=== PATIENT | female | born 1985 | race Asian ===

== ENCOUNTER 2020-01-31 21:48 | Emergency (ER) | payer OTHER, SELFPAY ==
[2020-01-31 21:52] VITALS: BP 117/80; PULSE 102; RESP 20; TEMP 36.1; O2SAT 100
--- NOTE | 2020-01-31 23:19 | ED.EAR ---
HPI - Ear Problem General Chief complaint: Ear Stated complaint: ear pain Time Seen by Provider: 01/31/20 22:38 Source: patient and RN notes reviewed Mode of arrival: ambulatory Limitations: no limitations History of Present Illness HPI Narrative: Pt is a 34 y/o female presenting to the ED c/o otalgia. Pt reports she started experiencing lt otalgia a week ago, but notes she developed rt otaliga earlier today. Pt reports her bilateral ears are pruritic as well, but denies fever. Pt notes she has been applying Benadryl cream to her ears. Pt denies a Hx of DM. Location: bilateral Associated symptoms ear: other (Bilateral ear pruritus) Treatment prior to arrival: other (Benadryl cream) Related Data Home Medications Medication Instructions Recorded Confirmed 11/18/19 Allergies Allergy/AdvReac Type Severity Reaction Status Date / Time No Known Allergies Allergy Unverified 11/18/19 23:42 Review of Systems Review of Systems: Narrative: All systems reviewed & are unremarkable except as noted in HPI and below Constitutional: Constitutional: Denies fever(s) ENT: Reports otalgia (Bilateral) Integumentary/Breasts: Skin/Breast: Reports pruritus (Bilateral ears) PMFSH Past Medical History Medical History Healthy adult Surgical History Surgical History No pertinent past surgical history Social History Social History Smoking status: Never smoker Gender identity (if verbalized by the patient): Female Exam Narrative: Exam Narrative: GENERAL: Well-appearing, well-nourished, and in no acute distress. HEAD: Normocephalic, atraumatic. EYES: PERRLA and EOMI. ENT: Nares clear, Mucous membranes moist. both external ear are erythematous and crusty NECK: Supple. CHEST: Clear to auscultation. No respiratory distress. HEART: Regular rate and rhythm. No murmur heard. Normal peripheral pulses.. EXTREMITIES: Normal range of motion. No edema. SKIN: Warm, dry, no rash. NEURO: No focal deficits. Alert and oriented x3. PSYCH: Normal mood and affect. Course Vital Signs Vital signs: Vital Signs Temperature 36.1 C L 01/31/20 21:52 Pulse Rate 102 H 03/06/20 21:52 Respiratory Rate 01/31/20 21:52 Blood Pressure 117/80 01/31/20 21:52 Pulse Oximetry 100 01/31/20 21:52 Temperature 36.1 C L 01/31/20 21:52 Pulse Rate 102 H 01/31/20 21:52 Respiratory Rate 01/31/20 21:52 Blood Pressure 117/80 01/31/20 21:52 Pulse Oximetry 100 01/31/20 21:52 Medical Decision Making Vital Signs Vital Signs: Vital Signs Temperature 36.1 C L 01/31/20 21:52 Pulse Rate 102 H 01/31/20 21:52 Respiratory Rate 01/31/20 21:52 Blood Pressure 117/80 01/31/20 21:52 Pulse Oximetry 100 01/31/20 21:52 Temperature 36.1 C L 01/31/20 21:52 Pulse Rate 102 H 01/31/20 21:52 Respiratory Rate 01/31/20 21:52 Blood Pressure 117/80 01/31/20 21:52 Pulse Oximetry 100 01/31/20 21:52 Discharge Plan Discharge Clinical Impression: Otitis externa Patient Disposition: Home, Self-Care Condition: Stable Instructions: Antibiotic Form Prescriptions: New prednisone 20 mg tablet 20 mg PO BID Qty: 14 RF: 0 amoxicillin-pot clavulanate [Augmentin] 875-125 mg tablet 1 tablet PO Q12H Qty: 14 RF: 0 No Action RF: 0 acetaminophen 500 mg tablet 1,000 mg PO .Q8 PRN (Reason: pain) Qty: 30 RF: 0 Follow-up/Referrals: UNKNOWN,DOCTOR [Primary Care Provider] - Adrián Goncalves MD [Physician] - Time of Disposition: 23:33
[2020-01-31] MEDS: predniSONE 20 MG TABLET 60 MG PO (23:46)
[2020-01-31 23:47] VITALS: BP 116/81; PULSE 88; RESP 16; O2SAT 100
== END 2020-01-31 23:48 | disposition home or self-care (01) ==
PROVIDERS: Emergency Provider Family Medicine
DX: H60.93 Unspecified otitis externa, bilateral (principal)
CPT/HCPCS: 99283; J7512

== ENCOUNTER 2025-03-06 09:52 | Outpatient (CLI) | payer OTHER, SELFPAY ==
--- NOTE | ~2025-03-06 | MM_ITS ---
EXAMINATION: MM scrn carmine implant BI w abeba HISTORY: Screening mammogram TECHNIQUE: Craniocaudal and mediolateral oblique 3-D tomosynthesis images with implant displacement a nd synthetic 2-D images were generated. Craniocaudal and mediolateral oblique views of the breasts wi thout implant displacement were obtained using full field digital mammography. CAD analysis was submi tted and interpreted. COMPARISON: No prior mammogram is available for comparison at this institution. BREAST PARENCHYMAL COMPOSITION: Dense: The breasts are heterogeneously dense, which may obscure small masses FINDINGS: There is no evidence of suspicious mass, calcification, or architectural distortion to sugg est malignancy in either breast. There has been no suspicious interval change. IMPRESSION: 1. No mammographic evidence of malignancy. 2. Recommend routine screening mammography in one year. BI-RADS Category 1: Negative Reviewed, dictated and finalized at location A.
--- OUTSIDE RECORDS SUMMARY | 2025-03-06 10:33 | XMS_ITS | Referral Summary ---
Author Organization [address] [address] Care Team Providers Care Hull Molder Name Role Phone Moris Hood MD Primary Care Provider Encounters Date Type Department Care Team Description 12/12/2024 Telephone [facility] Medical [facility] Primary Care at [address] [address] Moris Hood MD Test Results (Pap) 12/09/2024 1:31 PM GUIDE ESCORT - 12/09/2024 11:59 PM GUIDE ESC[place] [address] Cervical cancer screening Discharge Disposition: Discharge to home or self care 12/09/2024 1:00 PM GUIDE ESCORT Office Visit [facility] Medical [facility] Primary Care at [address] [address] Sepideh Figueroa NP Cervical cancer screening (Primary Dx) from Last 3 Months Allergies No known active allergies Medications gz-kj-vvxn-FA-Ca carb-vit K 18 mg iron-400 mcg-500 mg tablet Take by mouth Active Active Problems Problem Noted Date Diagnosed Date Encounter for medical examination to establish c are 08/14/2024 Assessment & Plan (08/14/2024 12:29 PM CDT): A(n) initial well visit to establish care has been performed today. Dustin Gabriel is not up to date on screening tests. She is in need of hep B and C and Cholesterol screening. She is not up to date on needed preventative vaccinations; She is in need of Influenza. She declines vaccinations at this time. We discussed healthy lifestyle habits, educational material has been given. Medications reviewed, changes documented as per the medical record and discussed with patient along with risks vs benefits. Specific topics reviewed: drugs, ETOH, and tobacco, importance of regular dental care, importance of regular exercise, importance of varied diet, limit TV, media violence, minimize junk food, and seat belts. Return in 1 year Immunizations Immunization Administration Dates Next Due DTaP 08/06/2016 Social History Tobacco Use Types Packs/Day Years Used Date Smoking Tobacco: Never Smokeless Tobacco: Never Tobacco Cessation:Counseling Given: Not Answered AUDIT-C Answer Date Recorded Q1: How often do you have a drink containing alc ohol? Monthly or less 08/14/2024 Q2: How many drinks containi ng alcohol do you have on a typical day when you are drinking? 1 or 2 08/14/2024 Q3: How often do you have si x or more drinks on one occasion? 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 Not on file Not on file Last Filed Vital Signs Vital Sign Reading Time Taken Comments Blood Pressure 98/64 12/09/2024 12:58 PM GUIDE ESCORT Pulse 64 12/09/2024 12:58 PM GUIDE ESCORT Temperature 36.8 C (98.2 F) 12/09/2024 12:58 PM GUIDE ESCORT Respiratory Rate 14 08/14/2024 12:07 PM CDT Oxygen Saturation 99% 12/09/2024 12:58 PM GUIDE ESCORT Inhaled Oxygen Concentration - - Weight 42.6 kg (94 lb) 12/09/2024 12:58 PM GUIDE ESCORT Height 154.9 cm (5' 1 ) 12/09/2024 12:58 PM GUIDE ESCORT Body Mass Index 17.76 12/09/2024 12:58 PM GUIDE ESCORT Plan of Treatment Not on file Procedures Procedure Name Priority Date/Time Associated Diagnosis Comments PAP WITH REFLEX TO HIGH RISK HPV Routine 12/09/2024 1:17 PM GUIDE ESCORT Cervical cancer screening THINPREP PROCESSING (MOLECULAR COMPONENT) Routine 12/09/2024 9:00 AM GUIDE ESCORT Cervical cancer screening HEPATITIS C ANTIBODY Routine 08/14/2024 4:00 PM CDT Need for hepatitis C screening test from Last 3 Months or Most Recently Relevant to Health Maintenance Results * Pap with reflex to High Risk HPV and Genotyping (Cytology Component) (12/09/2024 1:17 PM GUIDE ESCORT) Endocervical (Pap test) 12/09/2024 1:17 PM GUIDE ESCORT 12/09/2024 1:17 PM GUIDE ESCORT Narrative PATHOLOGY CH - 12/11/2024 4:02 PM GUIDE ESCORT [facility] Department of Pathology [address] [place] [address] Final Report Note to Patients: This report may contain a detailed description of human tissue sent by a health care provider to the laboratory for pathologic evaluation. The content of this report is essential for diagnosis and may provide important critical findings. This information may be unfamiliar to patients to review without a medical professional present. It is advised that the patient review this report in the presence of a health care provider who can answer questions and explain the details. Patient Name: DUSTIN GABRIEL Address: [address] [place] [address] Gender: F : 1985 (Age: 39) Service: Location: [facility] : [id number] [facility] #: [id number] Patient Type: SPECIMEN Taken: 12/09/2024 Received: 12/09/2024 Accessioned:: 12/10/2024 Reported: 12/11/2024 Physician(s): Sepideh Figueroa, F.N.P. Sepideh Figueroa, F.N.P. Diagnosis: SOURCE OF SPECIMEN Imaged Thinprep Pap Test w/ Reflex HPV - Smoke Jumper Cytologic Material: STATEMENT OF ADEQUACY - Specimen satisfactory for interpretation; endocervical/transformation zone component absent or insufficient GENERAL CATEGORIZATION: - Negative for intraepithelial lesion or malignancy EDWIN Oliver(ASCP) Report Electronically Reviewed and Signed Out By EDWIN Oliver(ASCP) 12/11/2024 16:02:38Specimen(s) Received: A: Imaged Thinprep Pap Test w/ Reflex HPV - Smoke Jumper Cytologic Material Clinical History: The Pap test is a screening test used to aid in the detection of cervical cancer and its precursors. It should not be the sole means by which malignant and premalignant lesions are diagnosed. Both false negative and false positive results may occur. It also has poor sensitivity for the detection of endometrial lesions and should not be used to evaluate suspected endometrial abnormalities. For these reasons it is most important to obtain Pap tests at regular intervals. The performance characteristics of some immunohistochemical stains, fluorescence in-situ hybridization tests and immunophenotyping by flow cytometry cited in this report (if any) were determined by the Surgical Pathology Department at [facility] as part of an ongoing quality control engineering technician program and in compliance with federally mandated regulations drawn from the Clinical Laboratory Improvement Act of 1988 (CLIA '88). Some of these tests rely on the use of analyte specific reagents and are subject to specific labeling requirements by the US Food and Drug Administration. Such diagnostic tests may only be performed in a facility that is certified by the Department of Health and Human Services as a high complexity laboratory under CLIA '88. The FDA has determined that such clearance or approval is not necessary. This test is used for clinical purposes. It should not be regarded as investigational or for research. Nevertheless, federal rules concerning the medical use of analyte specific reagents require that the following disclaimer be attached to the report: This test was developed and its performance characteristics determined by the Surgical Pathology Department [facility]. It has not been cleared or approved by the U. S. Food and Drug Administration. Sepideh Figueroa NP LAB CYTOLOGY ORDERABLES Final Re sult PATHOLOGY [address] [place] [address] * ThinPrep processing (Molecular component) (12/09/2024 9:00 AM GUIDE ESCORT) ThinPrep processing (Molecular component) Specimen received for processing. [facility] Comment:Testing performed by : [facility], [address] [facility], [place]., [address] Endocervical 12/09/2024 9:00 AM GUIDE ESCORT 12/10/2024 4:42 PM GUIDE ESCORT Sepideh Figueroa NP LAB BODY FLUIDS AND STOOLS ORDER CLAIR Final Result Performing Organization Address [facility] Phone Number [address]ACH K[address]EN [phone] [address] Department [place] [address] BJ * Hepatitis C antibody Blood (08/14/2024 4:00 PM CDT) Hep C Ab Nonreactive Nonreactive Comment: Interpretive Data Nonreactive: Antibodies to HCV not detected. Does NOT exclude the possibility of recent exposure to HCV. Equivocal: Equivocal for HCV antibodies. Supplemental molecular testing will be automatically performed to determine infection status in accordance with current CDC screening recommendations. Reactive: Positive for HCV antibodies. This may represent current or past HCV infection. Supplemental molecular testing will be automatically performed to determine current infection status in accordance with current CDC screening recommendations. Interpretive data was last revised on 2020. Blood 08/14/2024 4:00 PM CDT 08/14/2024 8:14 PM CDT Moris Hood MD LAB MICROBIOLOGY - GENERAL ORDERABLES Final Result Performing Organization Address [facility] de Phone Number ZACH [address]EN [phone] Department [place] [address] from Last 3 Months or Most Recently Relevant to Health Maintenance Insurance [facility] Care Teams Hull Molder Relationship Specialty Start Date End Date Moris Hood MD [facility] [address] [address] PCP - General Family Medicine 08/14/24
--- OUTSIDE RECORDS SUMMARY | 2025-03-06 10:33 | XMS_ITS | Clinical Summary ---
Author Organization [facility] [address] Address [address] [place] [address] Care Team Providers Care Veneer Sorter Name Role Phone Moris Hood MD Primary Care Provider [phone] Allergies No known active allergies Medications ik-tf-zlpt-FA-Ca carb-vit K 18 mg iron-400 mcg-500 mg [...] and seat belts. Return in 1 year Encounters Date Type Department Care Team Description 12/12/2024 Telephone [facility] Primary Care at [address] [address] Moris Hood MD Test Results (Pap) 12/09/2024 1:31 PM VICE INVESTIGATOR - 12/09/2024 11:59 PM VICE INVESTIGATOR Hospital Encounter [address] [address] Cervical cancer screening Discharge Disposition: Discharge to home or self care 12/09/2024 1:00 PM VICE INVESTIGATOR Office Visit [facility] Primary Care at [address] [address] Sepideh Fiugeroa NP Cervical cancer screening (Primary Dx) from Last 3 Months Immunizations Immunization Administration Dates Next Due DTaP 08/06/2016 Family History Medical History Relation Name Comments No Known Problems Brother 1 No Known Problems Brother 2 No Known Problems Father Heart disease Mother No Known Problems Sister 1 No Known Problems Sister 2 Relation Name Status Comments Brother 1 Alive Brother 2 Alive Father Alive Mother Alive Sister 1 Alive Sister 2 Alive Social History Tobacco Use Types Packs/Day Years [...] on file Legal Sex Female 9:08 PM VICE INVESTIGATOR Gender Identity Not on file Sexual Orientation Not on file 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 Not on file Not on file Obstetrics History Last Filed Vital Signs Vital Sign Reading Time Taken Comments Blood Pressure 98/64 12/09/2024 12:58 PM VICE INVESTIGATOR Pulse 64 12/09/2024 12:58 PM VICE INVESTIGATOR Temperature 36.8 C (98.2 F) 12/09/2024 12:58 PM VICE INVESTIGATOR Respiratory Rate 14 08/14/2024 12:07 PM CDT Oxygen Saturation 99% 12/09/2024 12:58 PM VICE INVESTIGATOR Inhaled Oxygen Concentration - - Weight 42.6 kg (94 lb) 12/09/2024 12:58 PM VICE INVESTIGATOR Height 154.9 cm (5' 1 ) 12/09/2024 12:58 PM VICE INVESTIGATOR Body Mass Index 17.76 12/09/2024 12:58 PM VICE INVESTIGATOR Plan of Treatment Health Maintenance Due Date Last Done Comments Breast Cancer Screening-Mammogram 1985 Influenza Vaccine (#1) 2025 Postp oned from 07/28/2024 (Patient declined, but will receive in the future) Regular Well Visit/Exam 18-64 08/14/2025 08/14/2024 Cervical Cancer Screening 12/09/2025 12/09/2024 Depression Screening 12/09/2025 12/09/2024, 08/14/2024 DTaP/Tdap/Td Vaccine (2 - Tdap) 08/06/2026 08/06/2016 Covid-19 Vaccine Discontinued 04/12/2021 Hepatitis B Screening Completed 08/14/2024 Hepatitis C Screening Completed 08/14/2024 HPV Vaccines Aged Out No longer eligi ble based on patient's age to complete this topic Pneumococcal vaccine <65 Aged Out No longer eligible based on patient's age to complete this topic Varicella Vaccines Discontinued Procedures Procedure Name Priority Date/Time Associated Diagnosis Comments PAP WITH REFLEX TO HIGH RISK HPV Routine 12/09/2024 1:17 PM VICE INVESTIGATOR Cervical cancer screening THINPREP PROCESSING (MOLECULAR COMPONENT) Routine 12/09/2024 9:00 AM VICE INVESTIGATOR Cervical cancer screening HEPATITIS C ANTIBODY Routine 08/14/2024 4:00 PM CDT Need for hepatitis C screening test from Last 3 Months or Most Recently Relevant to Health Maintenance Results * Pap with reflex to High Risk HPV and Genotyping (Cytology Component) (12/09/2024 1:17 PM VICE INVESTIGATOR) Endocervical (Pap test) 12/09/2024 1:17 PM VICE INVESTIGATOR 12/09/2024 1:17 PM VICE INVESTIGATOR Narrative PATHOLOGY CH - 12/11/2024 4:02 PM VICE INVESTIGATOR [facility] Department of Pathology [address] [place] [address] Final Report Note to Patients: This report [...] the details. Patient Name: DUSTIN GABRIEL Address: [address] [place] [address] Gender: F : 1985 (Age: 39) Service: Location: [facility] : [id number] [facility] #: [id number] Patient Type: SPECIMEN Taken: 12/09/2024 Received: 12/09/2024 Accessioned:: 12/10/2024 Reported: 12/11/2024 Physician(s): Neo Felipe F.N.P. Diagnosis: SOURCE OF SPECIMEN Imaged Thinprep Pap Test w/ Reflex HPV - Senior Industrial Engineer Cytologic Material: STATEMENT OF ADEQUACY - Specimen satisfactory for interpretation; endocervical/transformation zone component absent or insufficient GENERAL CATEGORIZATION: - Negative for intraepithelial lesion or malignancy EDWIN Oliver(ASCP) Report Electronically Reviewed and Signed Out By EDWIN Oliver(ASCP) 12/11/2024 16:02:38Specimen(s) Received: A: Imaged Thinprep Pap Test w/ Reflex HPV - Senior Industrial Engineer Cytologic Material Clinical History: The Pap test [...] determined by the Surgical Pathology Department at [facility] as part of an ongoing manufacturing quality manager program and in compliance with federally mandated [...] characteristics determined by the Surgical Pathology Department [facility]. It has not been cleared or approved by the U. S. Food and Drug Administration. us Sepideh Figueroa NP LAB CYTOLOGY ORDERABLES Final Re sult Performing Organization Address [facility]/ZIP Co de Phone Number PATHOLOGY [address] [place] [address] * ThinPrep processing (Molecular component) (12/09/2024 9:00 AM VICE INVESTIGATOR) Pathologist [facility] ThinPrep processing (Molecular component) Specimen received for processing. [facility] Comment:Testing performed by : [facility], [address] [place]., [address] Endocervical 12/09/2024 9:00 AM VICE INVESTIGATOR 12/10/2024 4:42 PM VICE INVESTIGATOR us Sepideh Figueroa NP LAB BODY FLUIDS AND STOOLS ORDER CLAIR Final Result Performing Organization Address [facility] Co de Phone Number [facility] [address] [address] Department [place] [address] [facility] * Hepatitis C antibody Blood (08/14/2024 4:00 [...] GENERAL ORDERABLES Final Result Performing Organization Address City/State/ZIP Co nd Phone Number ZACH KITCHEN [phone] [address] Department [place] [address] from Last 3 Months or Most Recently Relevant to Health Maintenance Insurance [facility] Care Teams Veneer Sorter Relationship Specialty Start Date End Date Moris Hood MD [address] [place] [address] PCP - General Family Medicine 08/14/24
== END 2025-03-06 09:53 | disposition home or self-care (01) ==
PROVIDERS: Visit Provider Nurse Practitioner Family
DX: Z12.31 Encounter for screening mammogram for malignant neoplasm of breast (principal); Z98.86 Personal history of breast implant removal
CPT/HCPCS: 77063; 77067